=== PATIENT | female | born 1940 | race Caucasian/White ===

== ENCOUNTER 2017-07-13 08:29 | Day surgery (SDC) | payer OTHER ==
[~2017-07-13] VITALS: Ht 154.9 cm; Wt 60.1 kg
[~2017-07-13 08:29] MED LIST: ABREVA; ALBIPROI INH; ALBU90OI6 INH; ALEN70 PO; AMLO5 PO; ASPI81EC PO; AZIT250 PO; BLOOD PRESSURE; BUDE6HFA INH; CIPR500 PO; DOXY100 PO; DULERA 100 MCG/13 GM; DULERA 200 MCG/13 GM INH; Drisdol50000 UNIT PO; ELIQUIS5 MG; FEXO60 PO; HYDCHL25 PO; LASIX; LISI20 PO; LOSA50 PO; METF500 PO; METF500C PO; METR500 PO; MUPI2TO TOP; NEBI5 PO; O2; OMEP20ER PO; POTA10T PO; PRED20 PO; ROFL500T; ROFL500T PO; TIOT18 IH; TIOT18 INH
== END 2017-07-13 11:17 | disposition home or self-care (01) ==
LOC: ORSCSDS 08:29
PROVIDERS: Internal Medicine Gastroenterology
PROC: 0DB68ZX Excision of Stomach, Via Natural or Artificial Opening Endoscopic, Diagnostic (ICD-10-PCS; principal; 2017-07-13 10:00)
PROC: 0DBK8ZX Excision of Ascending Colon, Via Natural or Artificial Opening Endoscopic, Diagnostic (ICD-10-PCS; principal; 2017-07-13 10:00)
PROC: 0DB88ZX Excision of Small Intestine, Via Natural or Artificial Opening Endoscopic, Diagnostic (ICD-10-PCS; principal; 2017-07-13 10:00)
DX: D50.9 Iron deficiency anemia, unspecified (principal); R10.12 Left upper quadrant pain; D12.2 Benign neoplasm of ascending colon; K29.80 Duodenitis without bleeding; B37.81 Candidal esophagitis; Z86.010 Personal history of colon polyps; K57.30 Diverticulosis of large intestine without perforation or abscess without bleeding; E11.9 Type 2 diabetes mellitus without complications; I10 Essential (primary) hypertension; J44.9 Chronic obstructive pulmonary disease, unspecified; Z99.81 Dependence on supplemental oxygen; Z79.899 Other long term (current) drug therapy; Z79.82 Long term (current) use of aspirin
CPT/HCPCS: 82947; 87081; 88305; J0330; J1980; J2405; J7120

== ENCOUNTER 2017-08-15 07:19 | Day surgery (SDC) | payer OTHER ==
[~2017-08-15] VITALS: Ht 154.9 cm; Wt 61.4 kg
== END 2017-08-15 09:49 | disposition home or self-care (01) ==
LOC: ORSCSDS 07:19
PROVIDERS: Ophthalmology
PROC: 08RJ3JZ Replacement of Right Lens with Synthetic Substitute, Percutaneous Approach (ICD-10-PCS; principal; 2017-08-15 09:00)
DX: H25.11 Age-related nuclear cataract, right eye (principal); E11.9 Type 2 diabetes mellitus without complications; I10 Essential (primary) hypertension; I48.91 Unspecified atrial fibrillation; Z79.82 Long term (current) use of aspirin; Z79.899 Other long term (current) drug therapy
CPT/HCPCS: 82947; J2250; J3010; J3301; J7040; V2632

== ENCOUNTER → 2017-11-18 | Outpatient (CLI) | payer OTHER ==
[2017-11-19 13:54] LABS: Stool Occult Blood Guaiac 1 Neg (Neg); Stool Occult Blood Guaiac 2 Neg (Neg)
== END ==
LOC: LAB EV 11:07 → LAB SHORT 11:07
PROVIDERS: Internal Medicine Gastroenterology
DX: D50.9 Iron deficiency anemia, unspecified (principal)
CPT/HCPCS: 82272

== ENCOUNTER → 2019-01-28 | Outpatient (CLI) | payer OTHER ==
[2019-02-09 17:06] LABS: NOROVIRUS GI Negative (Negative); NOROVIRUS GII Negative (Negative)
== END | disposition home or self-care (01) ==
LOC: LAB EV 04:30
PROVIDERS: Nurse Practitioner
DX: R19.7 Diarrhea, unspecified (principal)
CPT/HCPCS: 87015; 87045; 87046; 87205; 87328; 87329; 87798; 87899

== ENCOUNTER → 2019-01-29 | Outpatient (CLI) | payer OTHER | END | disposition home or self-care (01) | LOC: LAB EV 04:50 | DX: R19.7 Diarrhea, unspecified (principal) | CPT/HCPCS: 87425; 87493 ==

== ENCOUNTER → 2019-01-30 | Outpatient (CLI) | payer OTHER | LOC: LAB EV 04:10 | DX: R19.7 Diarrhea, unspecified (principal) | CPT/HCPCS: 87177; 87209 ==

== ENCOUNTER 2019-12-22 10:28 | Emergency (ER) | payer OTHER ==
[~2019-12-22] VITALS: Ht 154.9 cm; Wt 61.2 kg
[2019-12-22 11:14] LABS: BASOPHILS ABSOLUTE AUTO 0.01 K/mm3 (0.00-0.23); BASOPHILS PERCENT AUTO 0 % (0-2); EOSINOPHILS ABSOLUTE AUTO 0.12 K/mm3 (0.00-0.68); EOSINOPHILS PERCENT AUTO 2 % (0-6); Hematocrit 38.7 % (33.0-51.0); Hemoglobin 12.3 g/dL (11.5-16.0); IMMATURE GRAN ABSOLUTE AUTO 0.03 K/mm3 (0.00-0.10); IMMATURE GRAN PERCENT AUTO 0 % (0-1); LYMPHOCYTES ABSOLUTE AUTO 0.98 K/mm3 (0.84-5.20); LYMPHOCYTES PERCENT AUTO 13 % (21-46); MONOCYTES ABSOLUTE AUTO 0.91 K/mm3 (0.16-1.47); MONOCYTES PERCENT AUTO 12 % (4-13); Mean Corpuscular HGB 27.6 pg (26.0-34.0); Mean Corpuscular HGB Conc 31.8 g/dL (31.5-36.5); Mean Corpuscular Volume 87 fL (80-100); Mean Platelet Volume 8.3 fL (9.1-12.4); NEUTROPHILS ABSOLUTE AUTO 5.69 K/mm3 (1.96-9.15); NEUTROPHILS PERCENT AUTO 73 % (41-73); Platelet Count 358 K/mm3 (150-400); RDW Coefficient Variation 12.8 % (11.7-14.2); RDW Standard Deviation 40.8 fL (35.1-46.3); Red Blood Cell Count 4.45 M/mm3 (3.80-5.20); White Blood Cell Count 7.74 K/mm3 (4.00-11.30)
[2019-12-22 11:38] LABS: Alanine Aminotransfer (ALT/SGP 19 U/L (12-78); Albumin, Blood 3.7 g/dL (3.4-5.0); Albumin/Globulin Ratio 0.9 (0.8-1.8); Alk Phos 56 U/L (50-136); Anion Gap 5 mmol/L (6-16); Aspartate Aminotrans (AST/SGOT 13 U/L (12-37); Bilirubin, Total 0.5 mg/dL (0.1-1.0); Blood Urea Nitrogen 15 mg/dL (8-24); Bun/Creatinine Ratio 21.6 (12.0-20.0); CO2, Blood 29 mmol/L (21-32); Calcium, Blood 8.6 mg/dL (8.5-10.1); Chloride, Blood 100 mmol/L (98-108); Globulin, Blood 4.2 g/dL (2.2-4.0); Glomerular Filtration Rate >60 (60-); Glucose, Blood 94 mg/dL (70-99); Potassium, Blood 3.9 mmol/L (3.5-5.5); Sodium, Blood 134 mmol/L (136-145); Total Protein, Blood 7.9 g/dL (6.4-8.2)
[2019-12-22 11:57] LABS: Source, Urine Clean Catch
[2019-12-22 12:23] LABS: Bilirubin, Urine Neg (Neg); Blood, Urine 5+ (Neg); Glucose Qualitative, Urine Neg (Neg); Ketones, Urine 3+ (Neg); Leukocyte Esterase, Urine 1+ (Neg); Nitrite, Urine Neg (Neg); Protein, Urine 2+ (Neg); Urobilinogen, Urine NORM (Normal)
[2019-12-22 12:32] LABS: Color, Urine Yellow (P-Yellow)
[2019-12-22 12:33] LABS: Appearance, Urine Clear (Clear)
[2019-12-22 12:35] LABS: Bacteria Rare /hpf; Squamous Epithelial Cells Rare /hpf (Few)
[2019-12-22] MEDS ORDERED: LOPE2C PO (13:49)
[2019-12-22] MEDS ORDERED: ONDA4 PO (13:49)
== END 2019-12-22 14:10 | disposition home or self-care (01) ==
LOC: ER 10:28
PROVIDERS: Emergency Medicine
DX: R11.2 Nausea with vomiting, unspecified (principal); R19.7 Diarrhea, unspecified; I10 Essential (primary) hypertension; E11.9 Type 2 diabetes mellitus without complications; I48.91 Unspecified atrial fibrillation; J44.9 Chronic obstructive pulmonary disease, unspecified; Z88.8 Allergy status to other drugs, medicaments and biological substances; Z79.899 Other long term (current) drug therapy; Z79.82 Long term (current) use of aspirin; Z79.84 Long term (current) use of oral hypoglycemic drugs; Z79.01 Long term (current) use of anticoagulants; Z87.891 Personal history of nicotine dependence
CPT/HCPCS: 36415; 71045; 74177; 80053; 81001; 83690; 85025; 87086; 93005; 93010; 99284-25; Q9967

== ENCOUNTER 2021-03-31 20:39 | Emergency (ER) | payer OTHER ==
[~2021-03-31] VITALS: Ht 154.9 cm; Wt 65.3 kg
[~2021-03-31 20:39] MED LIST changes: +LOPE2C PO; +ONDA4 PO
[2021-03-31 21:30] LABS: BASOPHILS ABSOLUTE AUTO 0.01 K/mm3 (0.00-0.23); BASOPHILS PERCENT AUTO 0 % (0-2); EOSINOPHILS ABSOLUTE AUTO 0.45 K/mm3 (0.00-0.68); EOSINOPHILS PERCENT AUTO 5 % (0-6); Hematocrit 37.6 % (33.0-51.0); Hemoglobin 12.4 g/dL (11.5-16.0); IMMATURE GRAN ABSOLUTE AUTO 0.04 K/mm3 (0.00-0.10); IMMATURE GRAN PERCENT AUTO 1 % (0-1); LYMPHOCYTES ABSOLUTE AUTO 0.95 K/mm3 (0.84-5.20); LYMPHOCYTES PERCENT AUTO 11 % (21-46); MONOCYTES PERCENT AUTO 8 % (4-13); Mean Corpuscular HGB 27.9 pg (26.0-34.0); Mean Corpuscular Volume 85 fL (80-100); Mean Platelet Volume 8.7 fL (9.1-12.4); NEUTROPHILS ABSOLUTE AUTO 6.51 K/mm3 (1.96-9.15); NEUTROPHILS PERCENT AUTO 75 % (41-73); Platelet Count 306 K/mm3 (150-400); RDW Coefficient Variation 13.2 % (11.7-14.2); RDW Standard Deviation 40.8 fL (35.1-46.3); Red Blood Cell Count 4.45 M/mm3 (3.80-5.20); White Blood Cell Count 8.66 K/mm3 (4.00-11.30)
[2021-03-31 21:38] LABS: Alanine Aminotransfer (ALT/SGP 19 U/L (12-78); Albumin, Blood 3.5 g/dL (3.4-5.0); Albumin/Globulin Ratio 0.9 (0.8-1.8); Alk Phos 43 U/L (50-136); Anion Gap 5 mmol/L (6-16); Aspartate Aminotrans (AST/SGOT 9 U/L (12-37); Bilirubin, Total 0.7 mg/dL (0.1-1.0); Blood Urea Nitrogen 13 mg/dL (8-24); Bun/Creatinine Ratio 16.5 (12.0-20.0); CO2, Blood 29 mmol/L (21-32); Calcium, Blood 8.4 mg/dL (8.5-10.1); Chloride, Blood 94 mmol/L (98-108); Creatinine, Blood 0.79 mg/dL (0.40-1.00); Globulin, Blood 3.7 g/dL (2.2-4.0); Glomerular Filtration Rate >60 (60-); Glucose, Blood 130 mg/dL (70-99); Sodium, Blood 128 mmol/L (136-145); Total Protein, Blood 7.2 g/dL (6.4-8.2); Troponin I <0.015 ng/mL (0.000-0.040)
[2021-04-01 00:59] LABS: Source, Urine Clean Catch
[2021-04-01 01:02] LABS: Bilirubin, Urine Neg (Neg); Blood, Urine 5+ (Neg); Glucose Qualitative, Urine Neg (Neg); Ketones, Urine 2+ (Neg); Leukocyte Esterase, Urine 2+ (Neg); Nitrite, Urine Neg (Neg); Protein, Urine 2+ (Neg); Urobilinogen, Urine 1+ (Normal)
[2021-04-01 01:09] LABS: Amorphous Light (0-Heavy); Appearance, Urine Clear (Clear); Bacteria Mod /hpf; Color, Urine Yellow (P-Yellow); Mucus Mod (0-Heavy); Red Blood Cells, Urine 0-2 /hpf (0-2); Squamous Epithelial Cells Rare /hpf (Few); White Blood Cells, Urine 25-50 /hpf (0-5)
== END 2021-04-01 04:30 | disposition home or self-care (01) ==
LOC: ER 20:39
PROVIDERS: Physician Assistant
DX: R10.12 Left upper quadrant pain (principal); R10.32 Left lower quadrant pain; R11.0 Nausea; R19.7 Diarrhea, unspecified; I10 Essential (primary) hypertension; J44.9 Chronic obstructive pulmonary disease, unspecified; E11.9 Type 2 diabetes mellitus without complications; I48.91 Unspecified atrial fibrillation; Z88.8 Allergy status to other drugs, medicaments and biological substances; Z79.899 Other long term (current) drug therapy; Z79.82 Long term (current) use of aspirin; Z79.84 Long term (current) use of oral hypoglycemic drugs; Z79.01 Long term (current) use of anticoagulants
CPT/HCPCS: 36415; 74022; 74177; 80053; 81001; 83690; 84484; 85025; 87086; 93005; 93010; 96361; 96374; 99285-25; J2405; J7030; Q9967

== ENCOUNTER → 2022-05-15 | Outpatient (CLI) | payer OTHER ==
[2022-05-15 14:29] LABS: Creatinine, Urine Random 45.2 mg/dL (27.00-270.00); Microalb/Creat Ratio UR, Rand 11.504 mg/g (0.000-30.000); Microalbumin, Random Urine 5.2 mg/L (0.000-20.000)
== END ==
LOC: LAB 06:30 → LAB SHORT 06:30
PROVIDERS: Family Medicine
DX: R73.03 Prediabetes (principal)
CPT/HCPCS: 82043; 82570

== ENCOUNTER 2022-11-09 07:37 | Day surgery (SDC) | payer OTHER ==
[~2022-11-09] VITALS: Ht 157.5 cm; Wt 70.8 kg
[2022-11-09] VITALS (14 sets, daily range): BP systolic 96–153; BP diastolic 60–88
[~2022-11-09 07:37] MED LIST changes: +Crestor20 MG; -ELIQUIS5 MG; +ELIQUIS5 MG PO; +METO25ER PO
--- NOTE | 2022-11-09 08:46 | NUR ---
PT'S SON IN ROOM. CALL LIGHT IN REACH. PT DENIES CHEST PAIN. DR TURNER IN ROOM TO SEE PT.
--- NOTE | 2022-11-09 09:11 | NUR ---
PT C/O "CHEST TIGHTNESS" WHILE TALKING WITH DR TURNER. SEE NEW ORDERS.
--- NOTE | 2022-11-09 09:38 | NUR ---
PT NOW DENIES CHEST TIGHTNESS.
--- NOTE | 2022-11-09 11:27 | NUR ---
PT RETURNED BACK TO RECOVERY ROOM IN RECLINER. RIGHT RADIAL TR BAND SITE SOFT WITH NO PULSATILE BLEEDING; HEMATOMA NOTED PROX TO TR BAND; MANUAL PRESSURE BEING HELD BY YUE LEBRON AND SECOND RIGHT TR BAND WILL BE PLACED PROX TO FIRST TR BAND. PT DENIES CHEST PAIN. CALL LIGHT IN REACH.
--- NOTE | 2022-11-09 11:36 | NUR ---
DR TURNER IN ROOM TO ACCESS R RAD TR BAND PROX HEMATOMA.
--- NOTE | 2022-11-09 11:39 | NUR ---
1.5 CC OF ADDITIONAL AIR PLACED IN R TR BAND BY DR TURNER; WILL CONTINUE TO MONITOR. NO ADDTIONAL TR BAND ADDED.
--- NOTE | 2022-11-09 12:04 | NUR ---
DR. TURNER CALLED BACK TO THE BEDSIDE AND MANUAL NIBP CUFF PLACED TO THE RIGHT UPPER ARM AND TR BAND TO THE RIGHT RADIAL REPOSITIONED. THE PLETH WAS CONTINUED TO BE MONITORED. MANUAL PRESSURE HELD TO THE HEMATOMA THAT WAS EXISTING TO THE RIGHT RADIAL AREA PRIOR TO REPOSITION AND MASHED. AFTER 10 MINUTED ALL WAS SOFT WITH BRUISING LEFT IN PLACE. MD STEVENS. CONTINUED TO MONITOR.
--- NOTE | 2022-11-09 12:15 | NUR ---
DR. TURNER BACK AT THE BEDSIDE AND THE TR BAND WAS COMPLETLY CHANGED OUT BY THE MD AND RN AT THE BEDSIDE. PATIENT TOLERATED WELL. NEW TR BAND HAS 14 ML OF AIR IN THE BAND.
--- NOTE | 2022-11-09 12:34 | NUR ---
RIGHT RADIAL TR BAND SITE SOFT WITH NO HEMATOMA, NO PULSATILE BLEEDING.
[2022-11-09] MEDS ORDERED: NITR.4SL SL (12:44)
[2022-11-09] MEDS ORDERED: NITRO-DUR1 EAC1 TOP (12:44)
[2022-11-09] MEDS ORDERED: 1/2 NS 250ml250 ML (12:45)
[2022-11-09] MEDS ORDERED: ELIQUIS5 M2 PO (12:54)
--- NOTE | 2022-11-09 13:32 | NUR ---
ASSUMED CARE FROM YUE LOCKE, TR BAND IN PLACE WITH 14 ML OF AIR . LARGE AMOUNT OF BRUISING NOTED TO THE RIGHT FOREARM ADN RIGHT RADIAL AREA SOFT NO HEMATOMA PRESENT AT THIS TIME. PAIOETNT IN RECLINER, ON MONITOR AND CONVERSING WITH STAFF. CALL LIGHT IN REACH. NO PAIN NOTED FROM THE PATIENT .
--- NOTE | 2022-11-09 14:34 | NUR ---
BEGAN REMOVING AIR AT 1415, ALL AIR OUT AND NO BLEEDING NOTED. VVS. NO PAIN NOTED FROM THE PATIENT. CONTINUE TO MONITOR.
--- NOTE | 2022-11-09 15:38 | NUR ---
1530 PIV REMOVED. CATH TIP INTACT. SON AT THE BEDSIDE, DR. TURNER AT THE BEDSIDE AND SPOKE WITH THE SON AND THE PATIENT AND REVIEWED WITH RIGHT RADIAL. TR BAND OFF ADN CLOTH DOT IN PLACE WHITE BOARD IN PLACE, PATIENT DRESSED AND IN WHEELCHAIR. 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 DISCHARGED HOME VIA WHEELCHAIR TO CAR WITH SON DRIVING.
== END 2022-11-09 15:30 | disposition home or self-care (01) ==
LOC: MHTC 07:37
DX: I25.110 Atherosclerotic heart disease of native coronary artery with unstable angina pectoris (principal); I25.82 Chronic total occlusion of coronary artery; I10 Essential (primary) hypertension; Z87.891 Personal history of nicotine dependence
CPT/HCPCS: 76937; 85347; 92920; 93458; 99152; 99153; A9270; C1725; C1769; C1887; C1894; J1644; J2250; J3010; J7030; J7050; Q9967